=== PATIENT | male | born 1955 | race African-American/Black ===

== ENCOUNTER 2021-10-11 07:32 | Observation (INO) ==
[2021-10-11 08:48] LABS: Basophils % 0.3 % (0.0-0.8); Eosinophils % 0.4 % (0.00-10.9); Immature Granulocytes % 0.6 %; Immature Granulocytes Absolute 0.04 #; Lymphocytes # 1.6 10*3/uL (1.4-4.0); Lymphocytes % 22.4 % (21.2-54.2); Mean Corpuscular HGB Conc 32.5 GM/DL (32-36); Mean Corpuscular Volume 73.3 FL (87-102); Mean Platelet Volume 10.5 FL (9.6-12.0); Monocytes # 0.9 10*3/uL (0.11-0.8); Monocytes % 12.4 % (1.7-12.7); Neutrophils % 63.9 % (38.7-73.9); Platelet Count 148 T/CUMM (130-400); Red Blood Count 5.46 MC/CUMM (3.8-5.5); Red Cell Distribution Width 14.4 % (9.3-17.3); White Blood Count 7.2 T/CUMM (4-12)
[2021-10-11] MEDS ORDERED: HYDROmorphone 1 MG/1 ML SYRINGE IV STA (09:04)
[2021-10-11] MEDS ORDERED: SODIUM CHLORIDE 0.9% 1,000 ML IV STA (09:04)
[2021-10-11] MEDS ORDERED: ONDANSETRON 4 MG/2 ML VIAL IV STA (09:04)
[2021-10-11 09:10] LABS: Albumin 3.7 G/DL (3.4-5.0); Bilirubin,Total 1.8 MG/DL (0.20-1.00); Osmolality,Calculated 279.8 MOS/KG (273-304); Total Protein 8.2 G/DL (6.4-8.2)
[2021-10-11 09:15] LABS: Potassium 2.3 MMOL/L (3.5-5.1)
[2021-10-11] MEDS: POTASSIUM CHLORIDE RIDER 10 MEQ/100 ML PREMIX IV SCH ×3 (09:29→14:37)
[2021-10-11] MEDS ORDERED: ONDANSETRON 4 MG/2 ML VIAL IV PRN (09:55)
[2021-10-11] MEDS ORDERED: GLUCAGON 1 MG VIAL IM PRN (09:55)
[2021-10-11] MEDS ORDERED: DEXTROSE 10% 250 ML BAG IV PRN (10:00)
[2021-10-11] MEDS ORDERED: SODIUM CHLORIDE 0.9% 1,000 ML IV SCH (10:00)
[2021-10-11] MEDS ORDERED: MECLIZINE 25 MG TABLET PO PRN (10:43)
[2021-10-11] MEDS ORDERED: hydrALAZINE 20 MG/1 ML VIAL IV PRN (10:50)
[2021-10-11 12:09] LABS: Mucus,Urine Occasional /LPF (Occasional); Protein,Urine 30 mg/dL (Negative); RBC,Urine 728 /HPF (0-4); Urine Appearance Slightly Hazy (Clear); Urine Color Yellow (Yellow); Urine pH 7.5 (4.5-8.0)
[2021-10-11 12:10] LABS: Bilirubin,Urine Negative (Negative); Blood, Urine Large mg/dL (Negative); Glucose,Urine (UA) Negative (Negative); Ketones,Urine Negative (Negative); Nitrite,Urine Negative (Negative); Urine Urobilinogen 0.2 eU/dL (<2.0)
[2021-10-11] MEDS: SODIUM CHLOR 0.9% KCL 40 MEQ 40 MEQ/1,000 ML BAG IV SCH (13:07)
[2021-10-11] MEDS: POLYETHYLENE GLYCOL POWDER 17 GM PACK PO SCH (20:16)
[2021-10-11] MEDS: PANTOPRAZOLE 40 MG TABLET PO SCH (20:16)
[2021-10-11] MEDS: MORPHINE 2 MG/1 ML SYRINGE IV PRN (21:29)
[2021-10-12 04:36] LABS: Basophils % 0.5 % (0.0-0.8); Eosinophils # 0.1 10*3/uL (0.0-0.87); Eosinophils % 1.6 % (0.00-10.9); Hematocrit 36.4 VOL% (42.0-52.0); Hemoglobin 11.6 GM/DL (14.0-18.0); Immature Granulocytes % 0.3 %; Immature Granulocytes Absolute 0.02 #; Lymphocytes # 1.8 10*3/uL (1.4-4.0); Lymphocytes % 29.1 % (21.2-54.2); Mean Corpuscular HGB Conc 31.9 GM/DL (32-36); Mean Corpuscular Volume 74.9 FL (87-102); Mean Platelet Volume 10.5 FL (9.6-12.0); Monocytes % 15.6 % (1.7-12.7); Neutrophils % 52.9 % (38.7-73.9); Platelet Count 140 T/CUMM (130-400); Red Blood Count 4.86 MC/CUMM (3.8-5.5); Red Cell Distribution Width 14.3 % (9.3-17.3); White Blood Count 6.2 T/CUMM (4-12)
[2021-10-12 05:04] LABS: Albumin 3.3 G/DL (3.4-5.0); Bilirubin,Total 1.2 MG/DL (0.20-1.00); Calcium 8.5 MG/DL (8.5-10.1); Hypochromia Slight; Lymphocytes 22 % (20-55); Microcytosis Slight; Osmolality,Calculated 275.8 MOS/KG (273-304); Platelet Estimate Adequate; Total Cells Counted 100; Total Protein 7.4 G/DL (6.4-8.2)
[2021-10-12 05:13] LABS: Potassium 2.5 MMOL/L (3.5-5.1)
[2021-10-12] MEDS ORDERED: cefTRIAXone 1,000 MG in SODIUM CHLORIDE 0.9% 100 ML IV ONE (06:00)
[2021-10-12] MEDS: SODIUM CHLOR 0.9% KCL 40 MEQ 40 MEQ/1,000 ML BAG IV SCH ×2 (07:09→09:43)
[2021-10-12] MEDS ORDERED: POTASSIUM CHLORIDE 10 MEQ TABLET PO ONE (08:00)
[2021-10-12] MEDS ORDERED: POTASSIUM CHLORIDE 20 MEQ TABLET PO ONE ×3 (08:00→17:47)
[2021-10-12] MEDS: amLODIPine 10 MG TABLET PO SCH (09:42)
[2021-10-12] MEDS: POLYETHYLENE GLYCOL POWDER 17 GM PACK PO SCH ×2 (09:42→20:55)
[2021-10-12] MEDS: PANTOPRAZOLE 40 MG TABLET PO SCH ×2 (09:43→20:55)
[2021-10-12] MEDS: HYDROmorphone 1 MG/1 ML SYRINGE IV PRN ×2 (09:48→20:56)
[2021-10-12] MEDS ORDERED: ONDANSETRON 4 MG/2 ML VIAL ONE (16:25)
[2021-10-12] MEDS ORDERED: SEVOFLURANE 1 UNIT/15 MINUTE INH ONE (16:25)
[2021-10-12] MEDS ORDERED: fentaNYL 100 MCG/2 ML VIAL ONE (16:25)
[2021-10-12] MEDS ORDERED: MIDAZOLAM 2 MG/2 ML VIAL ONE (16:25)
[2021-10-12] MEDS ORDERED: propofoL 200 MG/20 ML VIAL IV ONE (16:25)
[2021-10-12] MEDS ORDERED: LIDOCAINE 2% 5 ML VIAL ONE (16:25)
[2021-10-12] MEDS ORDERED: ceFAZolin 1,000 MG VIAL ONE (16:44)
[2021-10-13] MEDS: SODIUM CHLOR 0.9% KCL 40 MEQ 40 MEQ/1,000 ML BAG IV SCH ×2 (03:45→14:42)
[2021-10-13 05:58] LABS: Basophils % 0.6 % (0.0-0.8); Eosinophils # 0.1 10*3/uL (0.0-0.87); Eosinophils % 2.1 % (0.00-10.9); Hemoglobin 11.2 GM/DL (14.0-18.0); Lymphocytes # 1.5 10*3/uL (1.4-4.0); Lymphocytes % 28.1 % (21.2-54.2); Mean Corpuscular Volume 74.8 FL (87-102); Mean Platelet Volume 10.2 FL (9.6-12.0); Monocytes # 0.6 10*3/uL (0.11-0.8); Monocytes % 11.6 % (1.7-12.7); Neutrophils % 57.6 % (38.7-73.9); Platelet Count 146 T/CUMM (130-400); Red Blood Count 4.68 MC/CUMM (3.8-5.5); Red Cell Distribution Width 14.2 % (9.3-17.3); White Blood Count 5.3 T/CUMM (4-12)
[2021-10-13 06:21] LABS: Albumin 3.2 G/DL (3.4-5.0); Bilirubin,Total 0.8 MG/DL (0.20-1.00); Calcium 8.4 MG/DL (8.5-10.1); Osmolality,Calculated 280.5 MOS/KG (273-304); Potassium 2.6 MMOL/L (3.5-5.1); Total Protein 7.1 G/DL (6.4-8.2)
[2021-10-13] MEDS: POTASSIUM CHLORIDE 20 MEQ TABLET PO SCH ×5 (08:33→21:20)
[2021-10-13] MEDS: POLYETHYLENE GLYCOL POWDER 17 GM PACK PO SCH ×2 (08:35→21:19)
[2021-10-13] MEDS: PANTOPRAZOLE 40 MG TABLET PO SCH ×2 (08:35→21:19)
[2021-10-13] MEDS: MAGNESIUM OXIDE 400 MG TABLET PO SCH ×2 (08:35→21:19)
[2021-10-13] MEDS: amLODIPine 10 MG TABLET PO SCH (08:35)
[2021-10-13] MEDS: MORPHINE 2 MG/1 ML SYRINGE IV PRN ×2 (09:40→14:39)
[2021-10-14] MEDS: SODIUM CHLOR 0.9% KCL 40 MEQ 40 MEQ/1,000 ML BAG IV SCH (05:38)
[2021-10-14 05:52] LABS: Basophils % 0.7 % (0.0-0.8); Eosinophils # 0.1 10*3/uL (0.0-0.87); Eosinophils % 3.2 % (0.00-10.9); Hematocrit 35.4 VOL% (42.0-52.0); Immature Granulocytes % 0.2 %; Immature Granulocytes Absolute 0.01 #; Lymphocytes # 1.6 10*3/uL (1.4-4.0); Lymphocytes % 36.4 % (21.2-54.2); Mean Corpuscular HGB Conc 31.1 GM/DL (32-36); Mean Platelet Volume 10.8 FL (9.6-12.0); Monocytes # 0.5 10*3/uL (0.11-0.8); Neutrophils % 47.5 % (38.7-73.9); Platelet Count 146 T/CUMM (130-400); Red Blood Count 4.66 MC/CUMM (3.8-5.5); Red Cell Distribution Width 14.4 % (9.3-17.3); White Blood Count 4.4 T/CUMM (4-12)
[2021-10-14 06:11] LABS: Calcium 8.1 MG/DL (8.5-10.1); Osmolality,Calculated 285.1 MOS/KG (273-304); Potassium 3.2 MMOL/L (3.5-5.1)
[2021-10-14 06:12] LABS: Albumin 3.2 G/DL (3.4-5.0); Bilirubin,Total 0.6 MG/DL (0.20-1.00); Calcium 8.4 MG/DL (8.5-10.1); Osmolality,Calculated 277.7 MOS/KG (273-304); Potassium 3.2 MMOL/L (3.5-5.1)
[2021-10-14] MEDS: POTASSIUM CHLORIDE 20 MEQ TABLET PO SCH (08:44)
[2021-10-14] MEDS: PANTOPRAZOLE 40 MG TABLET PO SCH (08:44)
[2021-10-14] MEDS: amLODIPine 10 MG TABLET PO SCH (08:44)
[2021-10-14] MEDS: POLYETHYLENE GLYCOL POWDER 17 GM PACK PO SCH (08:44)
[2021-10-14] MEDS: MAGNESIUM OXIDE 400 MG TABLET PO SCH (08:44)
[2021-10-14] MEDS ORDERED: POTASSIUM CHLORIDE 20 MEQ TABLET PO ONE (14:00)
[2021-10-14 16:39] VITALS: BP 156/86
== END 2021-10-14 16:44 | disposition home or self-care (01) ==
LOC: N.EDINP 07:32 → N.ED 07:32 → N.2W 10:47 → N.EDINP 10:51 → SUATTDRO 10-13 07:32
PROVIDERS: ADMIT Family Medicine; ATTEND Internal Medicine